=== PATIENT | female | born 1965 | race Caucasian/White ===

== ENCOUNTER 2021-09-24 09:23 | Outpatient (CLI) | payer SELFPAY ==
--- NOTE | 2021-09-24 15:32 | XRAY Report ---
PROCEDURE: Lumbar Spine Complete INDICATIONS: LOW BACK PX TECHNIQUE: 5 views of the lumbar spine were acquired. COMPARISON: None. FINDINGS: Bones: 5 [id number]-qhl-lypcjlo vertebrae are present. There is normal bony alignment. L4 compression frac ture of indeterminate age noted. L4 compression fracture results in approximately 40% loss of normal anterior vertebral body height. Mild degenerative disc changes noted throughout the lumbar spine. No suspicious bony lesions. Oblique views demonstrate no pars interarticularis defects. Soft tissues: Overlying bowel gas pattern is normal. No suspicious soft tissue calcifications. IMPRESSION: 1. L1 compression fracture of indeterminate age. If there is continued clinical concern for pathology , then MRI should be considered for further evaluation. 2. Mild multilevel degenerative disc disease. Reviewed by: Pennie Meadows MD, PhD on 09/24/2021 3:31 PM PST Approved by: Pennie Meadows MD, PhD on 09/24/2021 3:31 PM PST Station ID: [id number]
== END 2021-09-24 23:59 | disposition home or self-care (01) ==
LOC: DI.N 09:23
PROVIDERS: ATTEND Nurse Practitioner
DX: M48.56XA Collapsed vertebra, not elsewhere classified, lumbar region, initial encounter for fracture (principal); M51.36 Other intervertebral disc degeneration, lumbar region

== ENCOUNTER 2022-12-04 06:12 | Outpatient (CLI) | payer OTHER ==
--- NOTE | 2022-12-04 11:53 | XRAY Report ---
PROCEDURE: Lumbar Spine 2 View INDICATIONS: LOW BACK PAIN TECHNIQUE: 2 views of the lumbar spine were acquired. COMPARISON: X-ray lumbar spine 09/24/2021 FINDINGS: Bones: 5 wkk-vwz-hrgoaur vertebrae are present. There is trace retrolisthesis of L4 on L5, unchange d. Wedge deformity at L4 is unchanged. There is new compression deformity at L1 measuring approximate ly 20%. Moderate to severe disc and foraminal narrowing are present at L5-S1. Soft tissues: Overlying bowel gas pattern is normal. No suspicious soft tissue calcifications. IMPRESSION: New compression deformity at L1 compared to 09/24/2021. Recommend correlation to point tenderness as s ubacute fracture cannot be excluded. If further evaluation is required, MRI may be obtained. Prominent disc and foraminal narrowing at L5-S1. Reviewed by: Saida Nielsen MD on 12/04/2022 11:52 AM PDT Approved by: Saida Nielsen MD on 12/04/2022 11:52 AM PDT Station ID: [id number]
== END 2022-12-04 06:13 | disposition home or self-care (01) ==
LOC: DI 06:12
PROVIDERS: ATTEND Physician Assistant
DX: M51.37 Other intervertebral disc degeneration, lumbosacral region (principal); M48.07 Spinal stenosis, lumbosacral region; R93.7 Abnormal findings on diagnostic imaging of other parts of musculoskeletal system

== ENCOUNTER 2023-02-19 18:13 | Outpatient (CLI) | payer OTHER | END 2023-02-19 23:59 | disposition critical access hospital (66) | LOC: EMS 18:13 | DX: M54.2 Cervicalgia (principal); M54.6 Pain in thoracic spine; R07.1 Chest pain on breathing; M79.671 Pain in right foot; S20.311A Abrasion of right front wall of thorax, initial encounter; V49.40XA Driver injured in collision with unspecified motor vehicles in traffic accident, initial encounter; Y92.413 State road as the place of occurrence of the external cause | CPT/HCPCS: A0425; A0429 ==

== ENCOUNTER 2023-02-19 18:26 | Emergency (ER) | payer OTHER ==
[2023-02-19] MEDS ORDERED: HYDROmorphone 1 MG/ML CARPUJECT IVP STA (18:35)
[2023-02-19] MEDS ORDERED: SODIUM CHLORIDE 0.9% 1,000 ML IV STA (18:35)
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
[2023-02-19 18:43] LABS: BASOPHILS % (AUTO) 0.3 %; EOSINOPHILS # (AUTO) 0.1 10^3/uL (0.0-0.7); EOSINOPHILS % (AUTO) 1.5 %; HCT - HEMATOCRIT 43.2 % (37.0-47.0); HGB - HEMOGLOBIN 14.7 g/dL (12.0-16.0); LYMPHOCYTES # (AUTO) 2.5 10^3/uL (1.5-3.5); LYMPHOCYTES % (AUTO) 27.4 %; MEAN CORPUSCULAR HEMOGLOBIN 30.7 pg (27.0-31.0); MEAN CORPUSCULAR VOLUME 90.2 fL (81.0-99.0); MEAN PLATELET VOLUME 9.2 fL (7.9-10.8); MONOCYTES # (AUTO) 0.5 10^3/uL (0.0-1.0); NEUTROPHILS % (AUTO) 65.1 %; PLT - PLATELET COUNT 311 10^3/uL (130-450); RED BLOOD COUNT 4.79 10^6/uL (4.20-5.40); RED CELL DISTRIBUTION WIDTH 12.6 % (12.0-15.0); WHITE BLOOD COUNT 9.2 x10^3/uL (4.8-10.8)
[2023-02-19 18:50] LABS: INR 0.9 (0.8-1.2); PT - PROTHROMBIN TIME 10.6 secs (9.9-12.6)
[2023-02-19 18:55] LABS: ALBUMIN 4.5 g/dL (3.2-5.5); ALBUMIN/GLOBULIN RATIO 1.4 (1.0-2.2); BILIRUBIN,TOTAL 0.7 mg/dL (0.2-1.0); CALCIUM 9.2 mg/dL (8.5-10.3); CREATININE 0.7 mg/dL (0.4-1.0); POTASSIUM 4.4 mmol/L (3.5-5.0); TOTAL PROTEIN 7.8 g/dL (6.7-8.2)
[2023-02-19 19:37] VITALS: BP 138/87
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
[2023-02-19] MEDS ORDERED: oxyCODONE 5 MG TABLET PO STA (20:15)
[2023-02-19 20:49] LABS: BILIRUBIN,URINE NEGATIVE (NEGATIVE); GLUCOSE, URINE (UA) NEGATIVE (NEGATIVE); KETONES,URINE (UA) 15 mg/dL (NEGATIVE); LEUKOCYTE ESTERASE, URINE NEGATIVE (NEGATIVE); NITRITE,URINE NEGATIVE (NEGATIVE); OCCULT BLOOD,URINE NEGATIVE (NEGATIVE); PROTEIN,URINE NEGATIVE (NEGATIVE); UROBILINOGEN,URINE 0.2 (NORMAL) E.U./dL (NORMAL)
[2023-02-19 20:52] LABS: CLARITY,URINE CLEAR (CLEAR)
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
[2023-02-19] MEDS ORDERED: oxyCODONE/ACET 5/325 Prepack 4 PO STA (21:21)
== END 2023-02-19 21:51 | disposition home or self-care (01) ==
LOC: EDBD → EDUNIT# → ED 18:26
DX: S22.41XA Multiple fractures of ribs, right side, initial encounter for closed fracture (principal); S22.32XA Fracture of one rib, left side, initial encounter for closed fracture; S90.31XA Contusion of right foot, initial encounter; S20.219A Contusion of unspecified front wall of thorax, initial encounter; S20.01XA Contusion of right breast, initial encounter; V49.88XA Car occupant (driver) (passenger) injured in other specified transport accidents, initial encounter; I10 Essential (primary) hypertension; E11.9 Type 2 diabetes mellitus without complications; Z79.84 Long term (current) use of oral hypoglycemic drugs; E04.1 Nontoxic single thyroid nodule
CPT/HCPCS: 36415; 70450; 71250; 72125; 73610; 73630; 74176; 80053; 81003; 83690; 85025; 85610; 96374; 99284; A9270; J1170; 81001; 87086

== ENCOUNTER 2024-03-04 12:44 | Emergency (ER) | payer OTHER ==
--- NOTE | 2024-03-04 13:23 | ED Physician Documentation ---
PD HPI SKIN - Stated complaint Stated Complaint: RT FINGER DOG BITE - Chief complaint Chief Complaint: Wound - Additional information Additional information: 58-year-old female presents emergency department for right middle finger abrasion. 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 She said it bled but now bleeding is well- controlled she is not any blood thinners she is unsure if her tetanus is up-to-date and she was told by her work to come to the emergency department for further evaluation. PD PAST MEDICAL HISTORY - Past Medical History Past Medical History: Yes Endocrine/Autoimmune: Type 2 diabetes - Present Medications Home Medications: Ambulatory Orders Medication Instructions Recorded Confirmed Lisinopril [Zestril] 10 mg PO DAILY 02/19/23 03/04/24 metFORMIN [Glucophage] 500 mg PO DAILY 02/19/23 03/04/24 Levothyroxine Sodium 137 mcg PO DAILY 03/04/24 03/04/24 - Allergies Allergies/Adverse Reactions: Allergies Allergy/AdvReac Type Severity Reaction Status Date / Time No Known Drug Allergies Allergy Verified 03/04/24 12:54 - Social History Does the pt smoke?: No Smoking Status: Never smoker Does the pt drink ETOH?: Yes Does the pt have substance abuse?: No - Immunizations Immunizations are current?: No Immunizations: TDAP >10years/unknown PD ED PE NORMAL - Vitals Vital signs reviewed: Yes - Derm Derm: Other (2 mm laceration to the tip of right middle finger on the palmar aspect not involving fingernail no bleeding or foreign body identified.) - Extremities Extremities: No deformity, No tenderness to palpate, Normal ROM s pain, No edema Results - Vitals Vitals: Vital Signs - 24 hr 03/04/24 03/04/24 12:50 14:24 Temperature 36.5 C 36.5 C Heart Rate 100 88 Respiratory 16 16 Rate Blood Pressure 137/73 H 130/70 O2 Saturation 99 100 Oxygen O2 Source Room air PD Medical Decision Making - ED course ED course: 58-year-old female presents emergency department for very superficial dog bite to the left middle finger to the palmar aspect not involving the nail. Patient is able to flex and extend without any difficulty patient says that she was just advised to come in from her work for further evaluation. She is unsure if the dog is up-to-date with shots but the dog is domesticated and does not show any signs or symptoms of rabies. Patient is unsure when she last had her tetanus shot so she was given a tetanus booster while here in the emergency department her L&I paperwork was also filled out per her request. Wound was washed with soap and water here in the emergency department bacitracin applied over the wound I considered prescribing Augmentin but given how superficial the laceration is I do not believe that this is warranted at this point in time. She is taught return precautions signs and symptoms of infection and how to manage the wound at home. All questions answered patient safe for discharge. Departure - Departure Disposition: 01 Home, Self Care Clinical Impression: Dog bite of finger Instructions: ED Laceration Hand Comments: Thank for trusting us with your care. We have updated your tetanus shot here in the emergency department and it is good for ten years. You can take Tylenol or ibuprofen at home for any pain or discomfort. Wash it once to twice a day with soap and water watch out for signs and symptoms of infection which include swelling, redness, drainage that looks yellow or green. If you start to notice any signs or symptoms of infection please come back to the emergency department. Wishing you a speedy recovery. Forms: PCP List Discharge Date/Time: 03/04/24 14:24
[2024-03-04] MEDS: TETANUS/DIPHTHERIA/PERTUSSIS 0.5 ML SYRINGE IM ONE (14:19)
[2024-03-04] MEDS: BACITRACIN ZINC OINT 1 PACKET TOP STA (14:20)
[2024-03-04 14:29] VITALS: BP 130/70; O2SAT 100
== END 2024-03-04 14:24 | disposition home or self-care (01) ==
LOC: ED 12:44
DX: S61.252A Open bite of right middle finger without damage to nail, initial encounter (principal); W54.0XXA Bitten by dog, initial encounter; E11.9 Type 2 diabetes mellitus without complications; Z23 Encounter for immunization; Z79.84 Long term (current) use of oral hypoglycemic drugs
CPT/HCPCS: 90471; 90715; 99283; A9270